=== PATIENT | female | born 1990 | race American Indian/Alaskan Native ===

== ENCOUNTER 2016-11-15 15:14 | Emergency (ER) | payer OTHER ==
[2016-11-15 15:15] VITALS: BMI 31.8
[2016-11-15 15:19] VITALS: TEMP 98; O2SAT 100
[2016-11-15] MEDS ORDERED: Sodium Chloride 0.9% 1,000 ML IV ONE (15:29)
--- NOTE | 2016-11-15 15:48 | C.PDOC ---
History Of Present Illness 26-year-old female, presents to the emergency department with complaints of abdominal pain, nausea and multiple episodes of non-bilious/non-bloody vomiting for the past five days. Pain is intermittent in nature and non-radiating. Patient denies back pain, dizziness, fevers, chills, shortness of breath, chest pain, symptoms., or any other associated symptoms. No other complaints at this time. Time Seen by Provider: 11/15/16 15:23 Chief Complaint (Nursing): Abdominal Pain History Per: Patient History/Exam Limitations: no limitations Onset/Duration Of Symptoms: Days Current Symptoms Are (Timing): Still Present Past Medical History Vital Signs: Last Vital Signs Temp 98 F 11/15/16 15:16 Pulse 68 11/15/16 17:36 Resp 17 11/15/16 17:36 BP 127/83 11/15/16 17:36 Pulse Ox 100 11/15/16 17:36 - Medical History PMH: Asthma, Kidney Stones (age 17) Denies: Depression, Chronic Kidney Disease - [facility] Procedures APPLICATION OF SPLINT (10/23/14) INJECT/INFUSE NEC (02/25/14) Family History: States: Unknown Family Hx - Social History Hx Tobacco Use: Yes (light smoker) Hx Alcohol Use: Yes Hx Substance Use: Yes (Ecstasy) - Immunization History Hx Tetanus Toxoid Vaccination: No Hx Influenza Vaccination: No Hx Pneumococcal Vaccination: No Review Of Systems Except As Marked, All Systems Reviewed And Found Negative. Constitutional: Negative for: Fever Cardiovascular: Negative for: Chest Pain, Palpitations Gastrointestinal: Positive for: Nausea, Vomiting, Abdominal Pain. Negative for : Diarrhea Genitourinary: Negative for: Dysuria, Frequency, Vaginal Discharge, Vaginal Bleeding Musculoskeletal: Negative for: Back Pain Physical Exam - Physical Exam Appears: Non-toxic, No Acute Distress Skin: Warm, Dry, No Rash Head: Atraumatic, Normacephalic Eye(s): bilateral: Normal Inspection, PERRL, EOMI Nose: Normal Neck: Normal ROM Cardiovascular: Rhythm Regular Respiratory: Normal Breath Sounds, No Accessory Muscle Use Gastrointestinal/Abdominal: Soft, Tenderness (left adenxa, epigastric), No Guarding, No Rebound Back: Normal Inspection Extremity: Normal ROM ED Course And Treatment - Laboratory Results Result Diagrams: 11/15/16 16:06 11/15/16 16:06 O2 Sat by Pulse Oximetry: 100 Medical Decision Making Medical Decision Making: pt with abdominal pain, consider gastritis, colitis, uti. 500: pt now noted to be ucg (+) - r/o ectopic vs threatened ab vs miscarriage, at 8 weeks by dates 600: iup confirmed. abd soft, minimal ttp. pt does not want pain meds in er. pt advised to f/u with obgyn as outpt. no vb. pt took po in er. Disposition - Disposition Referrals: [facility] [Outside] [facility] [Outside] [address] [Outside] [facility] [Outside] Lalo Maria [Staff Provider] - Disposition: HOME/ ROUTINE Disposition Time: 17:54 Condition: STABLE Additional Instructions: please follow up with obgyn. return to er with worsening symptoms or concerns. Instructions: Threatened Miscarriage (ED) - Clinical Impression Clinical Impression: Threatened miscarriage, Abdominal pain - Scribe Statement The provider has reviewed the documentation as recorded by the Scribsteffi Belle All medical record entries made by the Scribe were at my direction and personally dictated by me. I have reviewed the chart and agree that the record accurately reflects my personal performance of the history, physical exam, medical decision making, and the department course for this patient. I have also personally directed, reviewed, and agree with the discharge instructions and disposition.
[2016-11-15] MEDS ORDERED: Sodium Chloride 0.9% 1,000 ML ONE (16:08)
[2016-11-15 16:23] LABS: BASO % 0.4 % (0.0-2.0); EOS % 0.5 % (0.0-4.0); HEMATOCRIT 39.7 % (34.0-47.0); LYMPH # 2.5 K/uL (1.0-4.3); LYMPH % 31.2 % (20.0-40.0); MEAN CELL VOLUME 82.9 fL (81.0-99.0); MEAN CORPUSCULAR HEMOGLOBIN 27.1 pg (27.0-31.0); MEAN CORPUSCULAR HGB CONC 32.6 g/dL (33.0-37.0); MEAN PLATELET VOLUME 8.3 fL (7.2-11.7); MONO # 0.6 K/uL (0.0-0.8); MONO % 6.9 % (0.0-10.0); RED CELL DISTRIBUTION WIDTH 12.5 % (11.5-14.5); WHITE BLOOD COUNT 7.9 K/uL (4.8-10.8)
[2016-11-15 16:30] LABS: CHLORIDE 100 mmol/L (98-107)
[2016-11-15 16:31] LABS: INR 1.2; SODIUM 133 mmol/L (132-148)
[2016-11-15 16:33] LABS: ALB/GLOB RATIO 1.2 (1.0-2.1); ALKALINE PHOSPHATASE 55 U/L (38-126); ALT/SGPT 21 U/L (9-52); AST/SGOT 25 U/L (14-36); BILIRUBIN,TOTAL 0.6 mg/dL (0.2-1.3); BLOOD UREA NITROGEN 9 mg/dL (7-17); CARBON DIOXIDE 24 mmol/L (22-30); GFR AFRICAN-AMERICAN > 60; TOTAL PROTEIN 7.3 g/dL (6.3-8.3)
[2016-11-15 16:34] LABS: CALCIUM 8.8 mg/dl (8.6-10.4); GLUCOSE,RANDOM 83 mg/dL (65-105)
[2016-11-15 16:52] LABS: RBC URINE 6 /hpf (0-3); URINE BACTERIA RARE (<OCC); URINE BILIRUBIN NEGATIVE (NEGATIVE); URINE BLOOD NEGATIVE (NEGATIVE); URINE COLOR Yellow (YELLOW); URINE GLUCOSE (UA) NORMAL (Normal); URINE KETONE 2+ mg/dL (NEGATIVE); URINE LEUKOCYTE ESTERASE NEG Leu/uL (Negative); URINE PROTEIN 1+ mg/dL (NEGATIVE); URINE UROBILINOGEN NORMAL mg/dL (0.2-1.0); WBC URINE 1 /hpf (0-5)
[2016-11-15 17:36] VITALS: BP 127/83; PULSE 68; RESP 17
--- NOTE | 2016-11-15 17:46 | US ---
Indication: Left-sided pelvic pain Comparison: None available Technique: Transabdominal pelvic ultrasound. Findings: The uterus measures approximately 9.1 x 6.3 x 7.3 cm. Anteverted. Cervix length measures approximately 2.7 cm. There is a single intrauterine fetus present. 3 mm yolk sac The gestational sac measures 2.7 cm and is compatible with a gestational age of 7 weeks 4 days. The crown-rump length measures 0.7 cm and is compatible with a gestational age of 6 weeks 4 days. There is heart motion which measured 122.1 BPM. The right ovary measures 4.3 x 3.0 x 3.3 cm. The left ovary measures 4.5 x 2.5 x 3.1 cm. Flow was demonstrated to both ovaries. Impression: Live single intrauterine with estimated gestational age 7 weeks 4 days by gestational sac calculation and 6 weeks 4 days by crown-rump length calculation. heart rate 122.1 bm. Advise an anomaly screen at 16-18 weeks gestational age
== END 2016-11-15 18:06 | disposition home or self-care (01) ==
LOC: C.ER 15:14
DX: O20.0 Threatened abortion (principal); R10.13 Epigastric pain; Z3A.01 Less than 8 weeks gestation of pregnancy
CPT/HCPCS: 76801; 80053; 81001; 83690; 84702; 84703; 85025; 85610; 85730; 86850; 86900; 96361; 96374; 96375; 99284; C9113; J2405; J7040

== ENCOUNTER 2017-01-14 10:29 | Emergency (ER) | payer OTHER ==
[2017-01-14 10:30] VITALS: BMI 31.8
[2017-01-14 10:35] VITALS: TEMP 98.9; O2SAT 98
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
[2017-01-14 11:49] VITALS: BP 124/72; PULSE 79; RESP 18
== END 2017-01-14 11:49 | disposition home or self-care (01) ==
LOC: C.ER 10:29
DX: Z20.6 Contact with and (suspected) exposure to human immunodeficiency virus [HIV] (principal); B35.4 Tinea corporis

== ENCOUNTER 2017-03-02 03:13 | Emergency (ER) | payer OTHER ==
[2017-03-02 03:14] VITALS: BMI 31.8
[2017-03-02] MEDS ORDERED: Sodium Chloride 0.9% 500 ML IV ONE (03:57)
[2017-03-02] MEDS ORDERED: Sodium Chloride 0.9% 1,000 ML ONE (04:08)
[2017-03-02 04:11] LABS: BASO % 0.3 % (0.0-2.0); EOS # 0.3 K/uL (0.0-0.7); EOS % 2.4 % (0.0-4.0); HEMATOCRIT 39.1 % (34.0-47.0); LYMPH # 4.3 K/uL (1.0-4.3); LYMPH % 37.9 % (20.0-40.0); MEAN CELL VOLUME 81.5 fL (81.0-99.0); MEAN CORPUSCULAR HEMOGLOBIN 26.9 pg (27.0-31.0); MEAN PLATELET VOLUME 8.5 fL (7.2-11.7); MONO # 0.9 K/uL (0.0-0.8); MONO % 8.1 % (0.0-10.0); RED CELL DISTRIBUTION WIDTH 13.3 % (11.5-14.5); WHITE BLOOD COUNT 11.3 K/uL (4.8-10.8)
[2017-03-02 04:26] LABS: ALB/GLOB RATIO 1.2 (1.0-2.1); ALKALINE PHOSPHATASE 66 U/L (38-126); ALT/SGPT 35 U/L (9-52); AST/SGOT 21 U/L (14-36); BILIRUBIN,TOTAL 0.3 mg/dL (0.2-1.3); BLOOD UREA NITROGEN 15 mg/dL (7-17); CALCIUM 8.4 mg/dl (8.6-10.4); CARBON DIOXIDE 22 mmol/L (22-30); CHLORIDE 101 mmol/L (98-107); GFR AFRICAN-AMERICAN > 60; GLUCOSE,RANDOM 95 mg/dL (65-105); SODIUM 137 mmol/L (132-148)
--- NOTE | 2017-03-02 05:44 | C.PDOC ---
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 Patient has a hx of similar pain due to ovarian cyst. Denies constipation, diarrhea, dysuria, fever, chills, or any other complaints. Time Seen by Provider: 03/02/17 03:46 Chief Complaint (Nursing): Abdominal Pain History Per: Patient History/Exam Limitations: no limitations Onset/Duration Of Symptoms: Mins (30) Current Symptoms Are (Timing): Still Present Severity: Mild Location Of Pain/Discomfort: LLQ Radiation Of Pain To:: Leg (left thigh), Other (buttocks) Quality Of Discomfort: "Pain" Associated Symptoms: denies: Fever, Chills, Diarrhea, Constipation, Urinary Symptoms Exacerbating Factors: None Alleviating Factors: None Recent travel outside of the [place]: No Additional History Per: Patient Past Medical History Reviewed: Historical Data, Nursing Documentation, Vital Signs Vital Signs: Last Vital Signs Temp 98.3 F 03/02/17 06:24 Pulse 75 03/02/17 07:30 Resp 18 03/02/17 07:30 BP 108/67 03/02/17 07:30 Pulse Ox 98 03/03/17 00:44 - Medical History PMH: Asthma, Kidney Stones (age 17) Denies: Depression, Chronic Kidney Disease - [facility] Procedures APPLICATION OF SPLINT (10/23/14) INJECT/INFUSE NEC (02/25/14) Family History: States: Unknown Family Hx - Social History Hx Tobacco Use: Yes (light smoker) Hx Alcohol Use: Yes Hx Substance Use: No (Ecstasy) - Immunization History Hx Tetanus Toxoid Vaccination: No Hx Influenza Vaccination: No Hx Pneumococcal Vaccination: No Review Of Systems Except As Marked, All Systems Reviewed And Found Negative. Constitutional: Negative for: Fever, Chills Gastrointestinal: Positive for: Abdominal Pain. Negative for: Diarrhea, Constipation Genitourinary: Negative for: Dysuria Physical Exam - Physical Exam Appears: Non-toxic, No Acute Distress Skin: Warm, Dry Head: Atraumatic, Normacephalic Eye(s): bilateral: Normal Inspection Cardiovascular: Rhythm Regular Respiratory: Normal Breath Sounds, No Rales, No Rhonchi, No Wheezing Gastrointestinal/Abdominal: Soft, Tenderness (Left suprapubic and inguinal area) , No Distention, No Guarding, No Rebound Back: No CVA Tenderness Neurological/Psych: Oriented x3, Normal Motor, Normal Sensation Gait: Steady ED Course And Treatment - Laboratory Results Result Diagrams: 03/02/17 04:09 03/02/17 04:09 O2 Sat by Pulse Oximetry: 98 (RA) Pulse Ox Interpretation: Normal - Other Rad Abd XR X-Ray: Interpreted by Me, Viewed By Me Interpretation: Moderate stools Progress Note: Plans: Blood work up, IV fluids, UA, Toradol. 0440 am- still c/ o of pain, morphine iv. Labs and obstructive series done and d/w pt. Patient is in no acute distress and is tolerating PO. Patient is improving with the pain and was instructed to follow up with her PMD for further evaluation and to return if symptoms worsens. Reassessment Condition: Improved Disposition - Disposition Referrals: [facility] [Outside] Disposition: HOME/ ROUTINE Disposition Time: 07:15 Condition: STABLE Prescriptions: Docusate [Colace] 100 mg PO DAILY #30 cap Polyethylene Glycol 3350 [Miralax] 17 gm PO DAILY #1 bottle Instructions: Constipation (DC) Forms: [employer] [place] (Lebanese) Print Language: ISRAELI - Clinical Impression Clinical Impression: Constipation - Scribe Statement The provider has reviewed the documentation as recorded by the Scribe Dagoberto gonzalez All medical record entries made by the Scribe were at my direction and personally dictated by me. I have reviewed the chart and agree that the record accurately reflects my personal performance of the history, physical exam, medical decision making, and the department course for this patient. I have also personally directed, reviewed, and agree with the discharge instructions and disposition.
[2017-03-02 06:06] LABS: RBC URINE 18 /hpf (0-3); URINE BACTERIA RARE (<OCC); URINE BILIRUBIN NEGATIVE (NEGATIVE); URINE BLOOD 1+ (NEGATIVE); URINE COLOR Yellow (YELLOW); URINE GLUCOSE (UA) NORMAL (Normal); URINE KETONE NEGATIVE (NEGATIVE); URINE LEUKOCYTE ESTERASE NEG Leu/uL (Negative); URINE PROTEIN 1+ mg/dL (NEGATIVE); URINE UROBILINOGEN NORMAL mg/dL (0.2-1.0); WBC URINE 5 /hpf (0-5)
[2017-03-02] MEDS ORDERED: Morphine 4 MG/ML VIAL IV ONE (06:15)
[2017-03-02 06:25] VITALS: TEMP 98.3
[2017-03-02 07:32] VITALS: BP 108/67; PULSE 75; RESP 18; O2SAT 98
--- NOTE | 2017-03-02 11:03 | RAD ---
PROCEDURE: Radiographs of the chest and abdomen (obstructive series) HISTORY: Abdominal Pain COMPARISON: No prior. TECHNIQUE: AP radiograph of the chest, with upright and supine radiographs of the abdomen. FINDINGS: CHEST: Lungs: Clear. Cardiovascular: Normal size heart. No pulmonary vascular congestion. Pleura: No pleural fluid. No pneumothorax. Other findings: None. ABDOMEN AND PELVIS: Bowel: Unremarkable bowel gas pattern. No evidence of mechanical obstruction. Free air: None. Bones: Unremarkable. Other findings: None. IMPRESSION: Unremarkable radiographs of chest and abdomen. No evidence of mechanical bowel obstruction.
== END 2017-03-02 07:34 | disposition home or self-care (01) ==
LOC: C.ER 03:13
DX: K59.00 Constipation, unspecified (principal)
CPT/HCPCS: 74022; 80053; 81001; 83690; 84703; 85025; 96361; 96374; 96375; 99285; J1885; J2270; J7040

== ENCOUNTER 2017-07-27 19:11 | Emergency (ER) | payer OTHER ==
[2017-07-27 19:11] VITALS: BMI 31.8
[2017-07-27 19:32] VITALS: RESP 20; O2SAT 99
--- NOTE | 2017-07-27 19:54 | C.PDOC ---
History Of Present Illness 27 year old female presents to ED with complaints of pain and itching to rectal area for 3 days. She has history of constipation and believes it is hemorrhoids. She reports pain worse when having bowel movement. She reports noticing bright red blood on tissue today. Denies any fever, nausea, vomiting, abdominal pain, pelvic pain. Time Seen by Provider: 07/27/17 19:45 Chief Complaint (Nursing): GI Problem History Per: Patient History/Exam Limitations: no limitations Onset/Duration Of Symptoms: Days Current Symptoms Are (Timing): Still Present Severity: Moderate Past Medical History Reviewed: Historical Data, Nursing Documentation, Vital Signs Vital Signs: Last Vital Signs Temp 98.6 F 07/27/17 20:34 Pulse 82 07/27/17 20:34 Resp 20 07/27/17 20:34 BP 120/80 07/27/17 20:34 Pulse Ox 99 07/27/17 20:53 - Medical History PMH: Asthma, Kidney Stones (age 17) Denies: Depression, Chronic Kidney Disease Surgical History: Cholecystectomy - [facility] Procedures APPLICATION OF SPLINT (10/23/14) INJECT/INFUSE NEC (02/25/14) Family History: States: No Known Family Hx - Social History Hx Tobacco Use: Yes (light smoker) Hx Alcohol Use: No Hx Substance Use: No (Ecstasy) - Immunization History Hx Tetanus Toxoid Vaccination: No Hx Influenza Vaccination: No Hx Pneumococcal Vaccination: No Review Of Systems Constitutional: Negative for: Fever, Chills Respiratory: Negative for: Cough, Shortness of Breath Gastrointestinal: Positive for: Constipation, Rectal Pain. Negative for: Nausea , Vomiting, Abdominal Pain Genitourinary: Negative for: Pelvic Pain Skin: Negative for: Rash Neurological: Negative for: Headache Physical Exam - Physical Exam Appears: Non-toxic, No Acute Distress Skin: Normal Color, Warm Head: Atraumatic, Normacephalic Eye(s): bilateral: Normal Inspection Nose: Normal Oral Mucosa: Moist Neck: Supple Chest: Symmetrical Cardiovascular: Rhythm Regular Respiratory: Normal Breath Sounds, No Accessory Muscle Use, No Rales, No Rhonchi , No Wheezing Gastrointestinal/Abdominal: Normal Exam, Soft, No Tenderness Rectal: Rectal Tone (normal), No Blood Streaked Stool, Hemorrhoids (mildy tender nonthrombosed external hemorrhoid), Other (no fissures, no blood) Extremity: Normal ROM Neurological/Psych: Oriented x3, Normal Speech, Normal Motor, Normal Sensation ED Course And Treatment O2 Sat by Pulse Oximetry: 99 (RA) Pulse Ox Interpretation: Normal Medical Decision Making Medical Decision Making: Patient with complaints of rectal pain, and there is visible hemorrhoid on exam. No signs of blood, fissures or tears. Recommend increase in fiber intake and dietary changes to help with constipation. Will give Rx. Advise follow up with PCP Disposition Counseled Patient/Family Regarding: Diagnosis, Need For Followup, Rx Given - Disposition Referrals: Shayla Davis MD [Medical Doctor] - Disposition: HOME/ ROUTINE Disposition Time: 19:52 Condition: GOOD Additional Instructions: Follow up with your primary medical doctor or clinic in 2-5 days for further evaluation. Take medications as prescribed. Try increasing fiber and water intake to help with constipation. Return to the emergency department at any time if symptoms persist or worsen. 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 - Scribe Statement The provider has reviewed the documentation as recorded by the Marloibsteffi Bernstein Provider Attestation All medical record entries made by the Scribe were at my direction and personally dictated by me. I have reviewed the chart and agree that the record accurately reflects my personal performance of the history, physical exam, medical decision making, and the department course for this patient. I have also personally directed, reviewed, and agree with the discharge instructions and disposition.
[2017-07-27 21:16] VITALS: BP 120/80; PULSE 82; TEMP 98.6
== END 2017-07-27 20:34 | disposition home or self-care (01) ==
LOC: C.ER 19:11
DX: K59.00 Constipation, unspecified (principal); K64.4 Residual hemorrhoidal skin tags; F17.210 Nicotine dependence, cigarettes, uncomplicated

== ENCOUNTER 2018-01-25 08:49 | Emergency (ER) | payer OTHER ==
[2018-01-25 08:49] VITALS: BMI 31.8
[2018-01-25 09:10] VITALS: BP 135/88; PULSE 70; RESP 18; TEMP 98.5; O2SAT 99
--- NOTE | 2018-01-25 09:35 | C.PDOC ---
History Of Present Illness 27 y/o female presents to the ED complaining of left ear pain for 1 week. She otherwise denies any fever, chills, sore throat, cough, congestion, or SOB. She admits to aggressive q-tipping when trying to clean ears. Time Seen by Provider: 01/25/18 09:29 Chief Complaint (Nursing): ENT Problem History Per: Patient History/Exam Limitations: None Onset/Duration Of Symptoms: Days Current Symptoms Are (Timing): Still Present Past Medical History Reviewed: Historical Data, Nursing Documentation, Vital Signs Vital Signs: Last Vital Signs Temp 98.5 F 01/25/18 09:05 Pulse 70 01/25/18 09:05 Resp 18 01/25/18 09:05 BP 135/88 01/25/18 09:05 Pulse Ox 99 01/25/18 09:35 - Medical History PMH: Asthma, Kidney Stones, Chronic Kidney Disease Denies: Depression Surgical History: Cholecystectomy - [facility] Procedures APPLICATION OF SPLINT (10/23/14) INJECT/INFUSE NEC (02/25/14) Family History: States: Unknown Family Hx - Social History Hx Tobacco Use: Yes (light smoker) Hx Alcohol Use: No Hx Substance Use: No (Ecstasy) - Immunization History Hx Tetanus Toxoid Vaccination: No Hx Influenza Vaccination: No Hx Pneumococcal Vaccination: No Review Of Systems Except As Marked, All Systems Reviewed And Found Negative. Constitutional: Negative for: Fever, Chills ENT: Positive for: Ear Pain. Negative for: Nose Congestion, Throat Pain Cardiovascular: Negative for: Chest Pain Respiratory: Negative for: Cough, Shortness of Breath Physical Exam - Physical Exam Appears: Well, Non-toxic, No Acute Distress Skin: Warm, Dry, No Rash Head: Atraumatic, Normacephalic Eye(s): bilateral: Normal Inspection Ear(s): Left: Other (boggy erythematous left ear canal, TM appears normal), Right: Normal Oral Mucosa: Moist Neck: Normal ROM, Supple Chest: Symmetrical Cardiovascular: Rhythm Regular Respiratory: Normal Breath Sounds, No Accessory Muscle Use Pulses: Left Radial: Normal, Right Radial: Normal Neurological/Psych: Oriented x3, Normal Speech ED Course And Treatment O2 Sat by Pulse Oximetry: 99 (RA) Pulse Ox Interpretation: Normal Medical Decision Making Medical Decision Making: Impression: L otitis externa Q-tipper TM wnl Plan: Patient informed and findings and diagnosis, stable for d/c home. Prescription provided. Disposition Doctor Will See Patient In The: Office Counseled Patient/Family Regarding: Diagnosis, Need For Followup, Rx Given - Disposition Referrals: Antonio Oliva MD [Staff Provider] - Disposition: HOME/ ROUTINE Disposition Time: 09:34 Condition: GOOD Additional Instructions: 3 drops to L ear- allow to dwell for 15 mins continue for 5 days- don't stop early No more Q-tipping! Follow-up in our outpatient Clinic or w Dr. Oliva- ENT as needed Prescriptions: Neomycin/Polymyxin/Hydrocort [Cortisporin Otic Soln] 3 drop OD TID #1 bottle Instructions: Outer Ear Infection (DC) Forms: [facility] (Argentine), Work Excuse - POA Present On Arrival: None - Clinical Impression Clinical Impression: Left ear pain - Scribe Statement The provider has reviewed the documentation as recorded by the Scribe (Bertha Su) Provider Attestation: All medical record entries made by the Scribe were at my direction and personally dictated by me. I have reviewed the chart and agree that the record accurately reflects my personal performance of the history, physical exam, medical decision making, and the department course for this patient. I have also personally directed, reviewed, and agree with the discharge instructions and disposition.
== END 2018-01-25 09:42 | disposition home or self-care (01) ==
LOC: C.ER 08:49
DX: H60.92 Unspecified otitis externa, left ear (principal)

== ENCOUNTER 2018-10-10 21:21 | Emergency (ER) | payer OTHER ==
[2018-10-10 21:21] VITALS: BMI 31.8
[2018-10-10] MEDS ORDERED: Sodium Chloride 0.9% 1,000 ML IV ONE (22:11)
--- NOTE | 2018-10-10 22:12 | C.PDOC ---
History Of Present Illness Patient presents with lower abdominal pain and vaginal spotting. LMP was 3 weeks ago. Denies fever, chills, nausea, or vomiting. Time Seen by Provider: 10/10/18 22:11 Chief Complaint (Nursing): Abdominal Pain History Per: Patient History/Exam Limitations: no limitations Onset/Duration Of Symptoms: Days Current Symptoms Are (Timing): Still Present Severity: Moderate Pain Scale Rating Of: 4 Location Of Pain/Discomfort: Other (Lower) Radiation Of Pain To:: None Quality Of Discomfort: Unable To Describe Associated Symptoms: Other (vaginal spotting). denies: Fever, Chills, Nausea, Vomiting Exacerbating Factors: None Alleviating Factors: None Recent travel outside of the [place]: No Past Medical History Reviewed: Historical Data, Nursing Documentation, Vital Signs Vital Signs: Last Vital Signs Temp 98.6 F 10/10/18 21:28 Pulse 80 10/10/18 21:28 Resp 16 10/10/18 21:28 BP 119/77 10/10/18 21:28 Pulse Ox 100 10/10/18 21:28 - Medical History PMH: Asthma, Kidney Stones (last year), Chronic Kidney Disease Denies: Depression Surgical History: Cholecystectomy - [facility] Procedures APPLICATION OF SPLINT (10/23/14) INJECT/INFUSE NEC (02/25/14) Family History: States: No Known Family Hx - Social History Hx Tobacco Use: Yes (light smoker) Hx Alcohol Use: No Hx Substance Use: No (Ecstasy) - Immunization History Hx Tetanus Toxoid Vaccination: No Hx Influenza Vaccination: No Hx Pneumococcal Vaccination: No Review Of Systems Constitutional: Negative for: Fever, Chills Cardiovascular: Negative for: Chest Pain, Palpitations Respiratory: Negative for: Cough, Shortness of Breath Gastrointestinal: Positive for: Abdominal Pain. Negative for: Nausea, Vomiting Genitourinary: Positive for: Other (vaginal spotting) Neurological: Negative for: Weakness, Numbness Physical Exam - Physical Exam Appears: Non-toxic Skin: Warm, Dry Head: Normacephalic Oral Mucosa: Moist Chest: Symmetrical, No Tenderness Cardiovascular: Rhythm Regular Respiratory: No Rales, No Rhonchi, No Wheezing Gastrointestinal/Abdominal: Soft, Tenderness (Diffuse), No Guarding, No Rebound Back: No CVA Tenderness Neurological/Psych: Oriented x3 ED Course And Treatment - Laboratory Results Result Diagrams: 10/10/18 22:54 04/16/19 22:54 O2 Sat by Pulse Oximetry: 100 (room air) Pulse Ox Interpretation: Normal Progress Note: Blood work and urinalysis ordered. IV fluids administered. Reevaluation Time: 02:27 Reassessment Condition: Improved Medical Decision Making Medical Decision Making: Upon provider reevaluation patient is feeling better, is medically stable, and requires no further treatment in the ED at this time. Patient will be discharged home. Counseling was provided and all questions were answered regarding diagnosis and need for follow up with the referred clinic. There is agreement to discharge plan. Return if symptoms persist or worsen. Disposition Counseled Patient/Family Regarding: Studies Performed, Diagnosis, Need For Followup - Disposition Referrals: [facility] [Outside] [facility] [Outside] Disposition: HOME/ ROUTINE Disposition Time: 22:11 Condition: FAIR Additional Instructions: Please return if symptoms recur. Instructions: Acute Abdomen (Belly Pain), Adult (DC), Stomach Pain in Early , Round Ligament Pain Forms: [facility] ([place]i) - Clinical Impression Clinical Impression: Abdominal pain during in first trimester, Corpus luteum cyst of right ovary - Scribe Statement The provider has reviewed the documentation as recorded by the Scribe Gabriel Redding All medical record entries made by the Scribe were at my direction and personally dictated by me. I have reviewed the chart and agree that the record accurately reflects my personal performance of the history, physical exam, medical decision making, and the department course for this patient. I have also personally directed, reviewed, and agree with the discharge instructions and disposition.
[2018-10-10 23:01] LABS: BASO # 0.1 K/uL (0.0-0.2); BASO % 0.7 % (0.0-2.0); EOS # 0.2 K/uL (0.0-0.7); EOS % 1.5 % (0.0-4.0); HEMOGLOBIN 12.4 g/dL (11.0-16.0); LYMPH # 4.5 K/uL (1.0-4.3); LYMPH % 40.1 % (20.0-40.0); MEAN CELL VOLUME 83.6 fL (81.0-99.0); MEAN CORPUSCULAR HGB CONC 33.4 g/dL (33.0-37.0); MEAN PLATELET VOLUME 8.4 fL (7.2-11.7); MONO # 0.7 K/uL (0.0-0.8); MONO % 6.6 % (0.0-10.0); NEUT # 5.8 K/uL (1.8-7.0); NEUT % 51.1 % (50.0-75.0); RBC 4.45 Mil/uL (3.80-5.20); RED CELL DISTRIBUTION WIDTH 13.1 % (11.5-14.5); WHITE BLOOD COUNT 11.3 K/uL (4.8-10.8)
[2018-10-10 23:04] LABS: SQUAMOUS EPITHIAL < 1 /hpf (0-5); URINE BILIRUBIN NEGATIVE (NEGATIVE); URINE CLARITY Clear (Clear); URINE COLOR Straw (YELLOW); URINE GLUCOSE (UA) NORMAL (Normal); URINE LEUKOCYTE ESTERASE NEG Leu/uL (Negative); URINE PROTEIN NEGATIVE (NEGATIVE); URINE UROBILINOGEN NORMAL mg/dL (0.2-1.0)
[2018-10-10 23:05] LABS: URINE BLOOD TRACE (NEGATIVE)
[2018-10-10 23:07] LABS: INR 1.1; PROTHROMBIN TIME 11.6 SECONDS (9.7-12.2)
[2018-10-10 23:16] LABS: ALB/GLOB RATIO 1.3 (1.0-2.1); ALT/SGPT 18 U/L (9-52); AST/SGOT 20 U/L (14-36); BLOOD UREA NITROGEN 8 mg/dL (7-17); CALCIUM 9.3 mg/dl (8.6-10.4); GFR NON-AFRICAN AMERICAN > 60
[2018-10-11 02:44] VITALS: BP 102/66; PULSE 75; RESP 18; TEMP 98.1; O2SAT 99
--- NOTE | 2018-10-11 08:24 | US ---
Pelvic ultrasound HISTORY: . COMPARISON: None available. Technique: Real-time sonography was through the pelvis utilizing transabdominal and transvaginal techniques. FINDINGS: Uterus: 10.2 x 5.7 x 7.5 centimeters. Heterogeneous echotexture. Anteverted. Cervix measures 3.6 centimeters. Intrauterine gestational sac measuring 1.98 centimeters corresponding to a gestational age of 6 weeks and 3 days. Yolk sac measures 3.3 millimeters. [place]-rump length measures 4.9 millimeters corresponding to a gestational age of 6 weeks and 1 day. heart rate of 117 beats per minute. No free fluid in the pelvic cul-de-sac. Nabothian cyst noted at the level of the cervix. Right ovary: 3.3 x 2.4 x 3.2 centimeters. Normal flow. Heterogeneous hyperechoic probable corpus luteal cyst measuring 2.1 x 1.6 x 2.2 centimeters. Left ovary: 4.1 x 1.8 x 3.7 centimeters. Normal flow. IMPRESSION: Intrauterine corresponding to a gestational age of 6 weeks and 1 days with crown-rump length of 4.9 millimeters. heart rate of 117 beats per minute. Probable right ovarian corpus luteal cyst measuring up to 2.2 centimeters. Nabothian cyst noted at the level of the cervix. Limited 1st trimester ultrasound for viability purposes only. Continued interval followup with serial ultrasound, serial HCG levels, and gynecological consultation would be helpful if clinically indicated. A preliminary report was generated at 2:24 a.m. on 10/11/[address] Marlena Woods from [employer].
== END 2018-10-11 02:45 | disposition home or self-care (01) ==
LOC: C.ER 21:21
DX: O26.891 Other specified pregnancy related conditions, first trimester (principal); N83.11 Corpus luteum cyst of right ovary; R10.30 Lower abdominal pain, unspecified; Z3A.01 Less than 8 weeks gestation of pregnancy
CPT/HCPCS: 76805; 76817; 80053; 81001; 81025; 84702; 85025; 85610; 85730; 86850; 86900; 96374; 96375; 99284; J2270; J2405; J7030